=== PATIENT | male | born 1965 | race Caucasian/White ===

== ENCOUNTER 2018-01-15 09:10 | Inpatient (IN) | payer OTHER ==
[~2018-01-15] VITALS: Ht 177.8 cm; Wt 99.8 kg
[2018-01-15 09:18] VITALS: BP 115/69
[2018-01-15 09:33] LABS: URINE BILIRUBIN NEGATIVE (Negative); URINE BLOOD NEGATIVE (Negative); URINE CLARITY CLEAR; URINE COLOR YELLOW; URINE GLUCOSE-RANDOM NEGATIVE (Negative); URINE KETONES NEGATIVE (Negative); URINE LEUKOCYTES-REFLEX TRACE (Negative); URINE NITRITE-REFLEX NEGATIVE (Negative); URINE PROTEIN NEGATIVE (Negative); URINE SPECIFIC GRAVITY 1.025 (1.005-1.030); URINE UROBILINOGEN 0.2 E.U./dl (0.2-1.0)
[2018-01-15 09:35] LABS: ABSOLUTE EOSINOPHILS 0.2 thou/uL (0.0-0.7); ABSOLUTE LYMPHOCYTES 1.5 thou/uL (0.8-5.3); ABSOLUTE MONOCYTES 0.5 thou/uL (0.0-1.2); ABSOLUTE NEUTROPHILS 3.3 thou/uL (1.6-8.1); BASOPHILS 0.7 %; EOSINOPHILS 2.8 %; HEMATOCRIT 43.9 % (42.0-52.0); HEMOGLOBIN 14.6 gm/dL (14.0-18.0); LYMPHOCYTES 26.4 %; MCH 29.1 pg (26.0-34.0); MCHC 33.2 g/dL (28.0-37.0); MCV 87.5 fL (80.0-100.0); MONOCYTES 9.4 %; MPV 8.7 fl. (7.2-11.1); NUCLEATED RBCS 0 /100WBC; PLATELET COUNT* 243 thou/uL (150-400); POLYS 60.7 %; RBC 5.01 mil/uL (4.50-6.00); RDW-CV 13.8 % (10.5-14.5); WBC 5.5 thou/uL (4.0-11.0)
[2018-01-15 09:38] LABS: ANION GAP 7 mmol/L (7-16); BUN 14 mg/dL (7-18); CALCIUM 9.4 mg/dL (8.5-10.1); CHLORIDE 105 mmol/L (98-107); CO2 27 mmol/L (21-32); CREATININE 1.2 mg/dL (0.6-1.3); GLUCOSE 130 mg/dL (70-99); SODIUM 139 mmol/L (136-145)
[2018-01-15 09:42] LABS: BACTERIA-REFLEX 1-9 Few /HPF (None Seen); CASTS None Seen /LPF (None Seen); CRYSTALS None Seen /LPF (None Seen); MUCUS 4-6 Moderate strn/LPF (None Seen); SQUAMOUS 0-3 Few /LPF (0-3); URINE RBC 0-2 Rare /HPF (0-2); URINE WBC-REFLEX 6-15 Few /HPF (0-5)
[2018-01-15 09:45] LABS: ALBUMIN 3.4 g/dL (3.4-5.0); ALKALINE PHOSPHATASE 56 U/L (46-116); LIPASE 121 U/L (73-393); SGOT 18 U/L (15-37); SGPT 28 U/L (30-65); TOTAL BILIRUBIN 0.1 mg/dL (<0.1-1.0); TOTAL PROTEIN 7.3 g/dL (6.4-8.2); TROPONIN-I LEVEL <0.06 ng/mL (<0.06)
--- NOTE | 2018-01-15 10:17 | NUR ---
TATI NOTIFIED UPON PT RETURN FROM CT. PT CONNECTED TO BP AND PULSE OX WAS PRIOR TO GOING TO CT
[2018-01-15 11:02] LABS: APTT 25.2 Seconds (25.0-31.3)
[2018-01-15 11:36] VITALS: BP 106/51
[2018-01-15 11:56] VITALS: BP 103/57
--- NOTE | 2018-01-15 14:46 | NUR ---
PT ADMITTED AROUND 1200 PT IS ALERT AND ORIENTED X 4 PT DENIES PAIN OR SOA PT IS UP AD RICH PT IS NOT A FALL RISK, PT HAS NO EPISODES OF NAUSEA OR EMESIS PT IS NPO GI CONSULTED, GI SAW PT ORDERED DIET FOR PT AND SCHEDULED AM EGD FOR TOMORROW, PT HEART RATE IS LOW NOTIFIED HOSPITALIST NO NEW ORDERS, PT IS SB ON THE MONITOR, SURGERY CONSULTED ON PT SURGERY SAW PT, WILL CONTINUE TO MONITOR
[2018-01-15 15:52] VITALS: BP 105/69
--- NOTE | 2018-01-15 16:21 | EKG ---
[place] [address] ELECTROCARDIOGRAM REPORT Name: PRACHI JOHNSON Room: [place] [address] ADM IN [facility].#: [id number] Admission: 01/15/18 Attend Phys: Matthew Sen, Discharge: Date of : 69 Report #: [id number] THIS REPORT FOR: //name// [facility] ED Test Date: 2018-01-15 Test Time: 09:32:41 Pat Name: PRACHI JOHNSON Department: Room: Gender: M Hospitalist Physician: Ananya IBARRA : 1965 Requested By: Juan Ken Order Number: [id number] MD: Kain Rogers Measurements Intervals [place] Rate: 66 P: 53 MA: 170 QRS: 20 QRSD: 99 T: 34 QT: 394 QTc: 413 Interpretive Statements Sinus rhythm ST elev, probable normal early repol pattern Baseline wander in lead(s) V1 No previous ECG available for comparison Electronically Signed On 01-15-2018 16:21:16 CDT by Kain Rogers [email or web address] <ELECTRONICALLY SIGNED> By: Kain Rogers MD, [facility] 01/15/18 1621 0932 Kain Rogers MD, [facility] /EPI
[2018-01-15 20:00] VITALS: BP 115/70
[2018-01-16] VITALS (8 sets, daily range): BP systolic 98–119; BP diastolic 50–66
--- NOTE | 2018-01-16 02:53 | NUR ---
PT ALERT ORIENTED. UP AD RICH. TELEMETRY SHOWS SR. NPO SINCE MN FOR EGD. NS AT 100MLS/HR. WILL CONTINUE TO MONITOR.
[2018-01-16 05:05] LABS: HEMATOCRIT 39.1 % (42.0-52.0); HEMOGLOBIN 12.9 gm/dL (14.0-18.0); MCH 29.1 pg (26.0-34.0); MCHC 33.1 g/dL (28.0-37.0); MCV 87.8 fL (80.0-100.0); MPV 9.1 fl. (7.2-11.1); RBC 4.45 mil/uL (4.50-6.00); RDW-CV 13.5 % (10.5-14.5); WBC 6.3 thou/uL (4.0-11.0)
[2018-01-16 05:24] LABS: CREATININE 1.2 mg/dL (0.6-1.3); MAGNESIUM 2.1 mg/dL (1.8-2.4); POTASSIUM 3.8 mmol/L (3.5-5.1)
--- NOTE | 2018-01-16 12:39 | NUR ---
MET WITH PT TO DISCUSS HOME SITUATION/DC PLANNING. PT LIVES WITH IN [facility]. STATES THEY ARE LIVING IN THE [place] FOR ABOUT A YEAR FOR WORK. PT USES NO EQUIPMENT AND IS INDEPENDENT. GAVE INFO ON FIND A PHYSICIAN AND DISCUSSED MICKIE. ALSO GAVE INFO ON SCRIPT ASSIST AND [employer] WITH COST FOR SCRIPTS. PT DENIES OTHER NEEDS.
--- NOTE | 2018-01-16 14:36 | NUR ---
ASSUMED PT CARE AT 0700 PT IS ALERT AND ORINETED X 4 PT DENIES PAIN OR SOA ON RA, PT IS UP AD RICH PT IS NOT A FALL RISK, PT IS SB ON THE MONITOR, PT NPO FOR EGD SIGNED CONSENT AND WENT FOR PROCEDURE, PT RETURNED TO UNIT GI STOPPED PROTOIX DRIP AND STARTED PT ON PO PROTONIX AND CARAFATE GI CLEARED PT FOR DISCHARGE, HOSPITALIST SAW PT STARTED ANTIBIOTICS WANTS PT TO STAY TODAY MAY DISCHARGE PT TOMORROW, PT HAS FLUIDS RUNNING AND TOLERATING DIET, WILL CONTINUE TO MONITOR
[2018-01-17] VITALS: BP 111/65
--- NOTE | 2018-01-17 01:12 | NUR ---
PT ALERT ORIENTED. UP AD RICH IN ROOM. NS AT 100MLS/HR. PT TEACHING RE: NEW MEDICATIONS. TELEMETRY SHOWS SB. WILL CONTINUE TO MONITOR.
[2018-01-17 04:00] VITALS: BP 108/63
[2018-01-17 05:14] LABS: ABSOLUTE BASOPHILS 0.1 thou/uL (0.0-0.2); ABSOLUTE EOSINOPHILS 0.2 thou/uL (0.0-0.7); ABSOLUTE LYMPHOCYTES 1.9 thou/uL (0.8-5.3); ABSOLUTE MONOCYTES 0.7 thou/uL (0.0-1.2); ABSOLUTE NEUTROPHILS 3.5 thou/uL (1.6-8.1); BASOPHILS 1.1 %; EOSINOPHILS 2.7 %; HEMATOCRIT 39.6 % (42.0-52.0); HEMOGLOBIN 13.1 gm/dL (14.0-18.0); LYMPHOCYTES 30.1 %; MCH 29.3 pg (26.0-34.0); MCHC 33.1 g/dL (28.0-37.0); MCV 88.6 fL (80.0-100.0); MONOCYTES 10.5 %; MPV 9.2 fl. (7.2-11.1); NUCLEATED RBCS 0 /100WBC; PLATELET COUNT* 209 thou/uL (150-400); POLYS 55.6 %; RBC 4.47 mil/uL (4.50-6.00); RDW-CV 13.6 % (10.5-14.5); WBC 6.3 thou/uL (4.0-11.0)
[2018-01-17 05:40] LABS: CALCIUM 7.9 mg/dL (8.5-10.1); CREATININE 1.1 mg/dL (0.6-1.3); MAGNESIUM 2.2 mg/dL (1.8-2.4)
[2018-01-17 08:00] VITALS: BP 100/51
--- NOTE | 2018-01-17 11:23 | NUR ---
ASSUMED PT CARE AT 0700 PT IS ALERT AND ORIENTED X 4 PT DENIES PAIN OR SOA, PT IS UP AD RICH PT IS NOT A FALL RISK, PT IS SB ON THE MONITOR, PT HAS FLUIDS RUNNING GAVE ANTIBIOTIC NO ADVERSE EFFECTS NOTED, PT MAY DISCHARGE AWAITING PHYSICIAN WILL CONTINUE TO MONITOR
[2018-01-17 13:05] VITALS: BP 132/77
[2018-01-17 16:58] VITALS: BP 137/79
[2018-01-17] MEDS ORDERED: PROTONIX40 M1 PO (18:18)
[2018-01-17 18:19] VITALS: BP 137/79
[2018-01-17] MEDS ORDERED: CARAFATE 1 GM TA1 G1 PO (18:19)
--- NOTE | 2018-01-26 16:59 | CON ---
[address] [address] CONSULTATION Name: ALEXPRACHI Room: [address] IN .R.#: [id number] Admission: 01/15/18 Attend Phys: Matthew Sen, Discharge: 01/17/18 Date of : 69 Report #: [id number] THIS REPORT FOR: //name// CC: BRENDA physician/PCP Matthew Sen DATE OF SERVICE: 01/15/2018 REQUESTING PHYSICIAN: Matthew Sen MD REASON FOR CONSULT: Report of upper GI bleed and severe severe reflux disease. HISTORY OF PRESENT ILLNESS: This is a 52-year-old male with no previous history of any endoscopic evaluation who complains of chronic reflux symptoms requiring him to take a bottle of Tums per week. He presented to hospital mainly due to the fact that after eating last night, he started vomiting and he saw some food with some blood in the emesis. This prompted him to come to hospital. His hemoglobin is within normal range. He also denies any hematochezia or melena. He currently is hemodynamically stable and feels pretty good. Since admission, he had a CT of abdomen and pelvis which showed some thickening of the distal esophagus and bladder. PAST MEDICAL HISTORY: Significant for history of appendectomy in 2012 and chronic reflux symptoms. ALLERGIES: No known drug allergy. MEDICATIONS: Please refer to hospital MAR. SOCIAL HISTORY: The patient lives at home. Denies alcohol use. FAMILY HISTORY: Negative for GI malignancy. PHYSICAL EXAMINATION: VITAL SIGNS: Reveals blood pressure of 103/57, respirations 16, pulse 53, temperature 98. LUNGS: Clear. CARDIOVASCULAR: Regular. ABDOMEN: Soft, nontender, nondistended. Bowel sounds are positive. LABORATORY DATA: Reveal sodium of 139, potassium 4.0, BUN is 14, creatinine 1.2, glucose is 130. Liver enzymes are within normal limit. WBC is 5.5, hemoglobin is 14.6 with platelet [place] [address] [address] CONSULTATION Name: PRACHI JOHNSON Room: [address] IN [facility].#: [id number] Admission: 01/15/18 Attend Phys: Matthew Sen, Discharge: 01/17/18 Date of : 69 Report #: [id number] IMAGING: CT of abdomen and pelvis was obtained and hence described above. ASSESSMENT AND PLAN: The patient with history of severe reflux disease who is not taking any PPIs, but has been taking Tums. He has abnormal CT suggestive of thickening of the distal esophagus. He also reports hematemesis. He is hemodynamically stable with normal hemoglobin. We will allow him to eat and perform EGD tomorrow. The patient also will need a colonoscopy for screening. We will suggest that to be done as outpatient. <ELECTRONICALLY SIGNED> By: Castro Cardona MD 01/26/18 1659 1314 [id number] Cardona MD /elaine
--- NOTE | 2018-02-05 11:09 | PATH ---
[address] [address] PATHOLOGY RPT PROCEDURE Name: PRACHI JOHNSON Room: [address] IN M.R.#: [id number] Admission: 01/15/18 Date of : 69 Discharge: 01/17/18 Report #: [id number] Path Case #: [id number] [facility] Accession Number: [id number] . 01 Material submitted: . ESOPHAGEAL BIOPSY . 01 Clinical history: . Abdominal pain, GI bleed, esophagitis . 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 (PATTY:hermelindo; 01/19/2018) . . Special stain: H. pylori immuno QMS/01/20/2018 . 02 Electronically signed: . Mars Farrell MD, Pathologist NPI- [id number] . 01 Gross description: . The specimen is received in formalin, labeled "Patria, Prachi, esophageal biopsy" and consists of multiple fragments of chahal soft tissue measuring 1.2 x 0.9 x 0.2 cm in aggregate. They are entirely submitted in A1. (SDY; 01/18/2018) SYU/SYU . 02 Pathologist provided ICD-10: K20.9 . 02 CPT . 415244, I06212 Performed at: 01 [facility] [address], [place], [place] [id number] MD Pa Crystal MD Phone: [phone] Performed at: [address] [facility] [address], [place], [place] [id number] MD Mars Farrell MD Phone: [phone]
== END 2018-01-17 18:48 | disposition left against medical advice (07) | DRG 378 ==
LOC: M.ERS 09:10 → M.TBA-ER 10:40 → M.ERS 10:40 → M.TBA-ER 11:08 → M.2W 11:08
PROVIDERS: Family Medicine; ADMIT Family Medicine
PROC: 0DB68ZX Excision of Stomach, Via Natural or Artificial Opening Endoscopic, Diagnostic (ICD-10-PCS; principal; 2018-01-16)
DX: K92.2 Gastrointestinal hemorrhage, unspecified (principal); K22.10 Ulcer of esophagus without bleeding; K21.0 Gastro-esophageal reflux disease with esophagitis; D64.9 Anemia, unspecified; N30.20 Other chronic cystitis without hematuria; K44.9 Diaphragmatic hernia without obstruction or gangrene; E66.9 Obesity, unspecified; Z68.31 Body mass index [BMI] 31.0-31.9, adult; Z90.49 Acquired absence of other specified parts of digestive tract; Z82.49 Family history of ischemic heart disease and other diseases of the circulatory system; Z85.46 Personal history of malignant neoplasm of prostate; Z80.42 Family history of malignant neoplasm of prostate; Z83.3 Family history of diabetes mellitus

== ENCOUNTER 2018-01-20 19:49 | Emergency (ER) | payer OTHER ==
[~2018-01-20] VITALS: Ht 177.8 cm; Wt 99.8 kg
[~2018-01-20 19:49] MED LIST: CARAFATE 1 GM TA1 G1 PO; PROTONIX40 M1 PO
[2018-01-20 20:43] LABS: ABSOLUTE BASOPHILS 0.1 thou/uL (0.0-0.2); ABSOLUTE EOSINOPHILS 0.2 thou/uL (0.0-0.7); ABSOLUTE LYMPHOCYTES 1.5 thou/uL (0.8-5.3); ABSOLUTE MONOCYTES 0.5 thou/uL (0.0-1.2); ABSOLUTE NEUTROPHILS 3.3 thou/uL (1.6-8.1); BASOPHILS 0.9 %; EOSINOPHILS 2.9 %; HEMATOCRIT 41.5 % (42.0-52.0); HEMOGLOBIN 14.2 gm/dL (14.0-18.0); LYMPHOCYTES 26.9 %; MCH 29.9 pg (26.0-34.0); MCHC 34.1 g/dL (28.0-37.0); MCV 87.5 fL (80.0-100.0); MONOCYTES 9.4 %; MPV 8.6 fl. (7.2-11.1); NUCLEATED RBCS 0 /100WBC; PLATELET COUNT* 240 thou/uL (150-400); POLYS 59.9 %; RBC 4.74 mil/uL (4.50-6.00); RDW-CV 13.6 % (10.5-14.5); WBC 5.6 thou/uL (4.0-11.0)
[2018-01-20 20:52] LABS: ANION GAP 4 mmol/L (7-16); BUN 15 mg/dL (7-18); CALCIUM 8.4 mg/dL (8.5-10.1); CHLORIDE 105 mmol/L (98-107); CO2 30 mmol/L (21-32); CREATININE 1.1 mg/dL (0.6-1.3); GLUCOSE 117 mg/dL (70-99); POTASSIUM 4.2 mmol/L (3.5-5.1); SODIUM 139 mmol/L (136-145)
[2018-01-20 21:03] LABS: ALBUMIN 3.4 g/dL (3.4-5.0); ALKALINE PHOSPHATASE 53 U/L (46-116); LIPASE 108 U/L (73-393); NT-PRO BRAIN NAT PEPTIDE 59 pg/mL (<300); SGOT 18 U/L (15-37); SGPT 20 U/L (30-65); TOTAL BILIRUBIN 0.2 mg/dL (<0.1-1.0); TOTAL PROTEIN 6.7 g/dL (6.4-8.2); TROPONIN-I LEVEL <0.06 ng/mL (<0.06)
[2018-01-20 21:12] LABS: URINE BILIRUBIN NEGATIVE (Negative); URINE BLOOD NEGATIVE (Negative); URINE CLARITY CLEAR; URINE COLOR YELLOW; URINE GLUCOSE-RANDOM NEGATIVE (Negative); URINE KETONES TRACE (Negative); URINE LEUKOCYTES-REFLEX NEGATIVE (Negative); URINE NITRITE-REFLEX NEGATIVE (Negative); URINE PROTEIN NEGATIVE (Negative); URINE SPECIFIC GRAVITY 1.025 (1.005-1.030); URINE UROBILINOGEN 0.2 E.U./dl (0.2-1.0)
[2018-01-20 21:25] LABS: AMP/METHAMP Negative (Negative); BARBITURATES Negative (Negative); BENZODIAZEPINES Negative (Negative); COCAINE Negative (Negative); METHADONE Negative (Negative); OPIATES Negative (Negative); PCP Negative (Negative); THC POSITIVE (Negative)
[2018-01-20] MEDS ORDERED: CARAFATE 1 GM TA1 GM PO (21:54)
[2018-01-20 22:18] VITALS: BP 104/56
--- NOTE | 2018-01-21 13:04 | EKG ---
[place] [address] ELECTROCARDIOGRAM REPORT Name: [id number] Admission: 01/20/18 Attend Phys: Discharge: 01/20/18 Date of : 69 Report #: [id number] THIS REPORT FOR: //name// [facility] ED Test Date: 2018-01-20 Test Time: 20:09:36 Pat Name: PRACHI JOHNSON Department: Room: Gender: M Internal Medicine Doctor: GERSON Hrae : 1965 Requested By: Daria Mcmahon Order Number: [id number] MD: Luis Mccain Measurements Intervals [place] Rate: 58 P: 59 [place]: 160 QRS: 20 QRSD: 99 T: 41 QT: 411 QTc: 404 Interpretive Statements Sinus rhythm ST elev, probable normal early repol pattern Baseline wander in lead(s) V1,V3,V4,V5 Compared to ECG 01/15/2018 09:32:41 No significant changes Electronically Signed On 01-21-2018 13:04:39 CDT by Luis Mccain [email or web address] <ELECTRONICALLY SIGNED> By: Luis Mccain MD, FAC 01/21/18 1304 08 08 Luis Mccain MD, [facility] /EPI
== END 2018-01-20 22:18 | disposition home or self-care (01) ==
LOC: M.ERS 19:49
PROVIDERS: Emergency Medicine
DX: K59.00 Constipation, unspecified (principal); K21.9 Gastro-esophageal reflux disease without esophagitis; Z90.49 Acquired absence of other specified parts of digestive tract

== ENCOUNTER 2018-02-10 19:39 | Inpatient (IN) | payer OTHER ==
[~2018-02-10] VITALS: Ht 177.8 cm; Wt 96.6 kg
[~2018-02-10 19:39] MED LIST changes: +CARAFATE 1 GM TA1 GM PO
[2018-02-10 19:58] VITALS: BP 111/70
[2018-02-10 20:29] LABS: URINE BILIRUBIN NEGATIVE (Negative); URINE BLOOD 3+ (Negative); URINE CLARITY SL CLOUDY; URINE COLOR YELLOW; URINE GLUCOSE-RANDOM NEGATIVE (Negative); URINE KETONES NEGATIVE (Negative); URINE LEUKOCYTES-REFLEX 1+ (Negative); URINE NITRITE-REFLEX NEGATIVE (Negative); URINE PROTEIN 1+ (Negative); URINE SPECIFIC GRAVITY 1.025 (1.005-1.030); URINE UROBILINOGEN 0.2 E.U./dl (0.2-1.0)
[2018-02-10 20:39] LABS: CASTS None Seen /LPF (None Seen); CRYSTALS None Seen /LPF (None Seen); MUCUS 4-6 Moderate strn/LPF (None Seen); SQUAMOUS 4-10 Moderate /LPF (0-3); URINE RBC 3-10 Few /HPF (0-2)
[2018-02-10 20:40] LABS: BACTERIA-REFLEX 1-9 Few /HPF (None Seen); URINE WBC-REFLEX >25 Many /HPF (0-5)
[2018-02-10 20:40] LABS: HEMATOCRIT 40.5 % (42.0-52.0); HEMOGLOBIN 13.5 gm/dL (14.0-18.0); MCH 28.5 pg (26.0-34.0); MCHC 33.4 g/dL (28.0-37.0); MCV 85.5 fL (80.0-100.0); MPV 7.3 fl. (7.2-11.1); NUCLEATED RBCS 0 /100WBC; PLATELET COUNT* 296 thou/uL (150-400); RBC 4.74 mil/uL (4.50-6.00); RDW-CV 13.2 % (10.5-14.5); WBC 11.9 thou/uL (4.0-11.0)
[2018-02-10 20:49] LABS: CALCIUM 8.3 mg/dL (8.5-10.1); CREATININE 1.2 mg/dL (0.6-1.3); POTASSIUM 4.1 mmol/L (3.5-5.1)
[2018-02-10 20:53] LABS: ALBUMIN 2.7 g/dL (3.4-5.0); TOTAL BILIRUBIN 0.3 mg/dL (<0.1-1.0); TOTAL PROTEIN 7.1 g/dL (6.4-8.2)
[2018-02-10 21:14] LABS: ABSOLUTE LYMPHOCYTES 1.5 thou/uL (0.8-5.3); ABSOLUTE MONOCYTES 2.1 thou/uL (0.0-1.2); ABSOLUTE NEUTROPHILS 8.2 thou/uL (1.6-8.1)
[2018-02-10 21:15] LABS: PLATELET ESTIMATE ADEQUATE
[2018-02-10 21:16] LABS: TOXIC GRANULATION 2+
[2018-02-10 22:15] VITALS: BP 117/69
[2018-02-10 22:25] VITALS: BP 103/59
--- NOTE | 2018-02-10 22:30 | NUR ---
PATIENT ARRIVED BY CART FROM ER TO ROOM 112 IN STABLE CONDITION AT 2215. ALERT AND ORIENTED X4. DENIES PAIN OR NAUSEA. AT BEDSIDE. VITALS STABLE. CONTINUE TO MONITOR.
--- NOTE | 2018-02-11 05:56 | NUR ---
PATIENT RESTING QUIETLY THIS AM ON HOURLY ROUNDS. DENIES NEED FOR PAIN MEDICATION. IVF INFUSING ORDERED. UP AD RICH. VOIDING ADEQUATELY. VITALS STABLE. CONTINUE TO MONITOR.
[2018-02-11 08:20] VITALS: BP 136/70
[2018-02-11] MEDS ORDERED: PEPCID20 MG PO (08:20)
[2018-02-11 08:56] LABS: CALCIUM 7.9 mg/dL (8.5-10.1); CREATININE 1.4 mg/dL (0.6-1.3); MAGNESIUM 1.7 mg/dL (1.8-2.4); POTASSIUM 4.1 mmol/L (3.5-5.1)
--- NOTE | 2018-02-11 16:00 | NUR ---
PT.UP WALKING INDEPENDENTLY. STATED HE AND LIVE IN A HOTEL. HE DOES NOT USE ANY DME. HE HAS A JOB, JUST DOES NOT HAVE INSURANCE. HE DENIES NEEDING ANY INFORMATION ON [facility]/PCP. HE SAID HE RECEIVED THIS INFORMATION LAST TIME HE WAS IN. CM TO BE AVAILABLE NEEDED.
[2018-02-11 17:03] VITALS: BP 140/79
--- NOTE | 2018-02-11 17:21 | NUR ---
ASSUMED CARE OF PATIENT AFTER MORNING REPORT. ALERT AND ORIENTED X4. ASSESSMENT COMPLETED AND CHARTED. VSS ON ROOM AIR. PATIENT HAS HAD NO COMPLAINTS OF PAIN, NAUSEA OR SOA THIS SHIFT. FLUIDS AND ANTIBIOTICS INFUSED ORDERED. PATIENTS IS VERY EAGER FOR PATIENT TO BE DISCHARGED AND WANTS TO KNOW WHY HE IS BEING HERE SO LONG. HOURLY ROUNDS MAINTAINED, CALL LIGHT WITHIN REACH, NURSING WILL CONTINUE TO MONITOR.
[2018-02-11 20:00] VITALS: BP 100/58
[2018-02-12 04:45] LABS: HEMATOCRIT 35.6 % (42.0-52.0); HEMOGLOBIN 11.8 gm/dL (14.0-18.0); MCH 28.5 pg (26.0-34.0); MCHC 33.1 g/dL (28.0-37.0); MCV 85.9 fL (80.0-100.0); MPV 7.4 fl. (7.2-11.1); RBC 4.14 mil/uL (4.50-6.00); WBC 14.1 thou/uL (4.0-11.0)
--- NOTE | 2018-02-12 04:47 | NUR ---
PATIENT REMAINS ALERT AND ORIENTED X4 THROUGHOUT SHIFT. VITAL SIGNS STABLE ON ROOM AIR. IV PATENT IN THE LEFT HAND INFUSING AT 100 ML/HR PER ORDERS. TRANSFERS AD RICH TO THE RESTOOM. TOLERATING REGULAR DIET. PAIN MANAGED WITH PO MEDICATION. DENIES NAUSEA. RESTING COMFORTABLY THROUGHOUT THE NIGHT. REPOSITIONING SELF IN BED. HOURLY ROUNDING COMPLETE. CALL LIGHT WITHIN REACH. NURSING WILL CONTINUE TO MONITOR.
[2018-02-12 05:06] LABS: CALCIUM 7.8 mg/dL (8.5-10.1); CREATININE 1.2 mg/dL (0.6-1.3); MAGNESIUM 1.8 mg/dL (1.8-2.4)
[2018-02-12 07:30] VITALS: BP 97/67
[2018-02-12] MEDS ORDERED: CEFUROXIME500 MG PO (09:12)
[2018-02-12] MEDS ORDERED: LEVSIN0.125 MG PO (09:12)
[2018-02-12 12:52] VITALS: BP 97/67
[2018-02-12 13:27] VITALS: BP 97/67
[2018-02-12 15:49] VITALS: BP 97/67
[2018-02-12 15:50] VITALS: BP 97/67
--- NOTE | 2018-02-12 15:52 | NUR ---
PATIENT REMAINS A&OX4. VITAL SIGNS STABLE ON ROOM AIR. NO COMPLAINTS OF PAIN, NAUSEA, OR SOA. PERSONAL ITEMS LEFT WITH PATIENT. DISCHARGE INSTRUCTIONS, PRESCRIPTIONS, AND NEW MEDICATION INFORMATION GIVEN TO PATIENT. HOURLY RONDING MAINTAINED. LEFT FLOOR AT 1345 WITH .
--- NOTE | 2018-02-12 17:51 | NUR ---
RADHA PORTILLO HAS REVIEWED AND AGREES WITH STUDENT NURSES CHARTING THROUGHOUT SHIFT.
== END 2018-02-12 13:40 | disposition home or self-care (01) | DRG 872 ==
LOC: M.ERS 19:39 → M.TBA-ER 21:48 → M.ORTHSURG 21:48
PROVIDERS: Emergency Medicine; Internal Medicine; ADMIT Internal Medicine
DX: A41.9 Sepsis, unspecified organism (principal); N39.0 Urinary tract infection, site not specified; N13.70 Vesicoureteral-reflux, unspecified; G43.901 Migraine, unspecified, not intractable, with status migrainosus; K21.9 Gastro-esophageal reflux disease without esophagitis; E86.9 Volume depletion, unspecified; Z87.11 Personal history of peptic ulcer disease; Z79.2 Long term (current) use of antibiotics; Z79.899 Other long term (current) drug therapy; Z82.49 Family history of ischemic heart disease and other diseases of the circulatory system; Z83.3 Family history of diabetes mellitus; Z80.42 Family history of malignant neoplasm of prostate